=== PATIENT | female | born 1965 | race Caucasian/White ===

== ENCOUNTER 2016-11-25 11:54 | Emergency (ER) | payer BC ==
[2016-11-25 12:36] VITALS: BP 102/71
--- NOTE | 2016-11-25 13:45 | UC ---
Complaint Female HPI - HPI Summary HPI Summary: onset yesterday of low abdominal pressure with voiding, coupled with low back pain, malaise and feeling chilled. No myalgias or fever. Drank cranberry juice, sx improved, but recurred this morning. Has had more than a liter of water this morning, with dilute urine being passed. - History Of Current Complaint Chief Complaint: UCGU Stated Complaint: URINARY Time Seen by Provider: 11/25/16 13:18 Hx Obtained From: Patient Hx Last Menstrual Period: 07/05/13 ?: No Onset/Duration: Sudden Onset Timing: Intermittent Severity Initially: Moderate Severity Currently: Moderate Character: Cramping Aggravating Factor(s): Urination Alleviating Factor(s): Nothing Associated Signs And Symptoms: Positive: Back Pain - very low back. Negative: Vaginal Bleeding/Discharge, Vaginal Discharge - Risk Factors Ectopic Risk Factor: Negative Ovarian Torsion Risk Factor: Negative - Allergies/Home Medications Allergies/Adverse Reactions: Allergies Allergy/AdvReac Type Severity Reaction Status Date / Time Sulfa Antibiotics Allergy Intermediate Rash Verified 11/25/16 12:36 Home Medications: Home Medications Selegiline 6 MG PATCH (NF) [Emsam PATCH (NF)] 1 patch TRANSDERM DAILY 11/25/16 [ History Confirmed 11/25/16] PMH/Surg Hx/FS Hx/Imm Hx Previously Healthy: Yes - menopause syndrome - Surgical History Surgical History: Yes Surgery Procedure, Year, and Place: uterine ablation - Family History Known Family History: Positive: Hypertension, Other - mother has hx of postmenopausal UTI's Negative: Cardiac Disease, Diabetes - Social History Occupation: Employed Full-time Lives: With Family Alcohol Use: Rare Substance Use Type: None Smoking Status (MU): Never Smoked Tobacco Review of Systems Constitutional: Negative Skin: Negative Eyes: Negative ENT: Negative Respiratory: Negative Cardiovascular: Negative Gastrointestinal: Negative Genitourinary: Urgency, Other - low pelvic pain Using selegilene for "brain fog " of menopause due to gi side effects ++ with other medications Motor: Negative Neurovascular: Negative Musculoskeletal: Negative Neurological: Negative Psychological: Negative Is Patient Immunocompromised?: No All Other Systems Reviewed And Are Negative: Yes Physical Exam Triage Information Reviewed: Yes Appearance: Well-Appearing, No Pain Distress Vital Signs: Initial Vital Signs Temp 98.2 F 11/25/16 12:29 Pulse 68 10/15/17 12:29 Resp 16 11/25/16 12:29 BP 102/71 11/25/16 12:29 Pulse Ox 100 11/25/16 12:29 Vital Signs Reviewed: Yes ENT: Positive: Pharynx normal Neck exam: Normal Neck: Positive: Supple, Nontender, No Lymphadenopathy Respiratory: Positive: Lungs clear, Normal breath sounds Cardiovascular: Positive: RRR, No Murmur Abdomen Description: Positive: Nontender, No Organomegaly, Soft. Negative: CVA Tenderness (R), CVA Tenderness (L) Musculoskeletal Exam: Normal Neurological Exam: Normal Neurological: Positive: Alert, Muscle Tone Normal Psychological Exam: Normal Skin Exam: Normal Diagnostics - Laboratory Diagnostic Studies Completed/Ordered: UA is normal, no nitrates or white cells. Complaint Female Dx - Course Course Of Treatment: begin macrodantin for UTI--symptoms highly suggestive. High water intake with a dilute urine. - Differential Dx/Diagnosis Differential Diagnosis/HQI/PQRI: Urinary Tract Infection Provider Diagnoses: UTI Discharge - Discharge Plan Condition: Stable Disposition: HOME Prescriptions: Nitrofurantoin Macrocrystals* [Macrodantin*] 100 mg PO BID #20 cap Additional Instructions: Begin macrodantin for symptoms suggestive of urinary infection. The results of the culture will be back on the morning of the ; please call if you have persistent symptoms.
== END 2016-11-25 13:58 | disposition home or self-care (01) ==
LOC: UCCORT 11:54
DX: N39.0 Urinary tract infection, site not specified (principal); Z88.2 Allergy status to sulfonamides
CPT/HCPCS: 81003; 87086; 99212; G0463

== ENCOUNTER 2017-06-10 08:07 | Emergency (ER) | payer BC ==
[2017-06-10 08:19] VITALS: BP 114/69
--- NOTE | 2017-06-10 08:45 | UC ---
Skin Complaint HPI - HPI Summary HPI Summary: Pt presents with c/o left, lateral trunk skin irritation. Pt states that she was bit by a tick and removed tick this morning. Pt is concerned that area immediately surrounding bite is mildly erythematous. - History of Current Complaint Chief Complaint: UCSkin Time Seen by Provider: 06/10/17 08:16 Stated Complaint: TICK Hx Obtained From: Patient Hx Last Menstrual Period: 07/05/13 ?: No Onset/Duration: Sudden Onset, Still Present Skin Exposure Onset/Duration: Days Ago Timing: Constant Onset Severity: Mild Current Severity: Mild Pain Intensity: 1 Pain Scale Used: 0-10 Numeric Location: Discrete - left mid lateral trunk Character: Redness Aggravating Factor(s): Touch Alleviating Factor(s): Unknown Associated Signs & Symptoms: Positive: Tenderness Related History: Insect Bite/Sting, Possible Reaction to: Insect - Allergy/Home Medications Allergies/Adverse Reactions: Allergies Allergy/AdvReac Type Severity Reaction Status Date / Time Sulfa (Sulfonamide Allergy Hives Verified 04/01/17 12:26 Antibiotics) Review of Systems Constitutional: Negative Skin: Other - erythema, possible tick bite Eyes: Negative ENT: Negative Respiratory: Negative Cardiovascular: Negative Gastrointestinal: Negative Genitourinary: Negative Motor: Negative Neurovascular: Negative Musculoskeletal: Negative Neurological: Negative Psychological: Negative Is Patient Immunocompromised?: No All Other Systems Reviewed And Are Negative: Yes PMH/Surg Hx/FS Hx/Imm Hx Previously Healthy: Yes - Surgical History Surgical History: Yes Surgery Procedure, Year, and Place: uterine ablation - Family History Known Family History: Positive: Hypertension, Other - mother has hx of postmenopausal UTI's Negative: Cardiac Disease, Diabetes - Social History Occupation: Employed Full-time Lives: With Family Alcohol Use: Rare Substance Use Type: None Smoking Status (MU): Never Smoked Tobacco Have You Smoked in the Last Year: No Physical Exam Triage Information Reviewed: Yes Appearance: Well-Appearing Vital Signs: Initial Vital Signs Temp 97.9 F 06/10/17 08:15 Pulse 87 06/10/17 08:15 Resp 18 06/10/17 08:15 BP 114/69 06/10/17 08:15 Pulse Ox 98 06/10/17 08:15 Vital Signs Reviewed: Yes Eye Exam: Normal ENT: Positive: Hearing grossly normal Neck exam: Normal Respiratory: Positive: No respiratory distress Musculoskeletal Exam: Normal Neurological Exam: Normal Psychological Exam: Normal Skin Exam: Other - small, circular ~ dime size area left mid lateral trunk center of area is darkened, no obvius FB Course/Dx - Differential Diagnoses - Skin Complaint Differential Diagnoses: Tick Born Illness - Diagnoses Provider Diagnoses: insect bite (possible tick). Discharge - Sign-Out/Discharge Documenting (check all that apply): Discharge/Admit/Transfer - Discharge Plan Condition: Stable Disposition: HOME Prescriptions: DOXYcycline CAP(*) [DOXYcycline 100MG CAP(*)] 200 mg PO DAILY #2 cap Patient Education Materials: Insect Bite or Sting (ED) Referrals: Vishal Morales MD [Primary Care Provider] - Additional Instructions: Please follow up with your PCP or return to clinic as needed. - Billing Disposition and Condition Condition: STABLE Disposition: HOME
== END 2017-06-10 08:34 | disposition home or self-care (01) ==
LOC: UCCORT 08:07
DX: S30.861A Insect bite (nonvenomous) of abdominal wall, initial encounter (principal); W57.XXXA Bitten or stung by nonvenomous insect and other nonvenomous arthropods, initial encounter; Y93.9 Activity, unspecified; Y92.9 Unspecified place or not applicable; Z88.2 Allergy status to sulfonamides
CPT/HCPCS: 99212; G0463